=== PATIENT | male | born 1950 | race Caucasian/White ===

== ENCOUNTER 2022-05-13 09:57 | Outpatient (CLI) | payer MEDICARE ==
[2022-05-13 11:28] LABS: Hemoglobin 13.3 g/dL (13.5-17.5)
[2022-05-13 11:40] LABS: Anion Gap 12 mmol/L (10-20); BUN (Urea Nitrogen) 20 mg/dL (8.4-25.7); Calc. Creatinine Clearance 0 mL/min (70-130); Calcium 9.4 mg/dL (7.8-10.44); Carbon Dioxide 28 mmol/L (23-31); Chloride 104 mmol/L (98-107); Estimated GFR 79; Glucose 151 mg/dL (83-110); Sodium 140 mmol/L (136-145)
== END 2022-05-13 09:58 | disposition home or self-care (01) ==
LOC: CSHLAB 09:57
PROVIDERS: ATTEND Otolaryngology Otolaryngic Allergy
DX: Z01.812 Encounter for preprocedural laboratory examination (principal); Z20.822 Contact with and (suspected) exposure to COVID-19
CPT/HCPCS: 80048; 85014; 85018; 87811

== ENCOUNTER 2022-05-17 06:12 | Day surgery (SDC) | payer MEDICARE ==
[2022-05-13 10:25] VITALS: BMI 31.8
[2022-05-17] MEDS ORDERED: Oxymetazoline HCl 0.05% ( 15 ML ) ONE (07:35)
[2022-05-17] MEDS ORDERED: Lidocaine 1% MPF 2 ML VIAL ONE (07:37)
[2022-05-17] MEDS ORDERED: Midazolam HCl 2 mg/2 ml Vial ONE (08:08)
[2022-05-17] MEDS ORDERED: Ondansetron PF 4 MG/2 ML Vial ONE (08:08)
[2022-05-17] MEDS ORDERED: PROPOFOL 20 ML ONE (08:08)
[2022-05-17] MEDS ORDERED: Fentanyl 100 MCG/2 ML VIAL ONE (08:08)
[2022-05-17] MEDS ORDERED: Dexamethasone 20 MG/5 ML VIAL ONE (08:08)
[2022-05-17] MEDS ORDERED: Rocuronium Bromide 10 MG/ML (10ML VIAL) ONE (08:08)
[2022-05-17] MEDS ORDERED: Lidocaine 1% PF 5 ML VIAL ONE (08:08)
[2022-05-17] MEDS ORDERED: SUGAMMADEX SODIUM 200 MG/2 ML VIAL ONE (08:10)
[2022-05-17] MEDS ORDERED: Mupirocin 2% Ointment 22 GM Tube ONE (08:12)
[2022-05-17] MEDS ORDERED: EPINEPHrine 1 MG/ML AMP ONE ×2 (08:12)
[2022-05-17] MEDS ORDERED: CEFAZOLIN 1 GM VIAL ONE (08:19)
[2022-05-17] MEDS ORDERED: Lidocaine 1% w/Epinephrine 1:100K 20 ML VIAL ONE (08:50)
[2022-05-17] MEDS ORDERED: Silver Nitrate Application 1 EACH ONE (08:50)
[2022-05-17] MEDS ORDERED: Triamcinolone 40 MG/ML VIAL ONE (09:06)
[2022-05-21 12:09] LABS: Fungus Stain Final report (.)
== END 2022-05-17 10:55 | disposition home or self-care (01) ==
LOC: CSHSDC 06:12
PROVIDERS: ATTEND Otolaryngology Otolaryngic Allergy
PROC: 099Q8ZZ Drainage of Right Maxillary Sinus, Via Natural or Artificial Opening Endoscopic (ICD-10-PCS; principal; 2022-05-17)
DX: J01.00 Acute maxillary sinusitis, unspecified (principal); B46.5 Mucormycosis, unspecified; R04.0 Epistaxis; J30.9 Allergic rhinitis, unspecified; J34.3 Hypertrophy of nasal turbinates; J44.9 Chronic obstructive pulmonary disease, unspecified; G47.30 Sleep apnea, unspecified; I10 Essential (primary) hypertension; Z79.2 Long term (current) use of antibiotics; Z79.899 Other long term (current) drug therapy; Z88.8 Allergy status to other drugs, medicaments and biological substances; Z20.822 Contact with and (suspected) exposure to COVID-19; Z98.890 Other specified postprocedural states
CPT/HCPCS: 87070; 87077; 87102; 87186; 87205; 87206; 88305; 88312; 93005; 93010; J0171; J0690; J1100; J2250; J2405; J2704; J3010; J3301